=== PATIENT | male | born 2005 | race Caucasian/White ===

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

== ENCOUNTER → 2025-08-26 | Outpatient (CLI) | payer OTHER ==
[~2025-08-26] MED LIST changes: -CYPR4TA PO; +CYPR4TAB36 PO
[2025-08-26 09:45] LABS: FREE T4 1.15 NG/DL (0.83-1.43); TOTAL 25(OH) VITAMIN D 22.8 NG/ML (20.0-100.0)
== END ==
LOC: M LAB 08:08
PROVIDERS: ATTEND Internal Medicine Endocrinology, Diabetes & Metabolism
DX: E06.3 Autoimmune thyroiditis (principal); D55.9 Anemia due to enzyme disorder, unspecified